=== PATIENT | male | born 1970 | race African-American/Black ===

== ENCOUNTER 2020-09-16 10:28 | Emergency (ER) | payer MEDICARE, MEDICAID ==
[~2020-09-16] VITALS: Ht 182.9 cm; Wt 87.0 kg
[~2020-09-16 10:28] MED LIST: BENA40TA9; CLON0.3T4; HYDR25TA PO; IMIT25; NAPR-1176; TRAM50TA94
[2020-09-16 10:32] VITALS: BP 174/103
[2020-09-16] MEDS ORDERED: BACITRACIN 15GM TUBE TOP ONE (11:00)
[2020-09-16] MEDS ORDERED: BACITRACIN ZINC OINT UDPKT TOP ONE (11:00)
== END 2020-09-16 11:55 | disposition home or self-care (01) ==
LOC: ER 10:28
DX: S60.221A Contusion of right hand, initial encounter (principal); W22.8XXA Striking against or struck by other objects, initial encounter; Y93.89 Activity, other specified; Y92.89 Other specified places as the place of occurrence of the external cause; I10 Essential (primary) hypertension; I25.10 Atherosclerotic heart disease of native coronary artery without angina pectoris
CPT/HCPCS: 73130; 99283

== ENCOUNTER 2022-08-23 22:08 | Inpatient (IN) | payer MEDICAID, MEDICARE ==
[~2022-08-23] VITALS: Ht 188 cm; Wt 81.3 kg
[~2022-08-23 22:08] MED LIST changes: -BENA40TA9; +BENA40TA91
[2022-08-24 00:51] LABS: CHLORIDE 105 mEq/L (98-107)
[2022-08-24 00:53] LABS: BASOPHILS % 0.6 % (0.0-2.0); EOSINOPHILS % 1.5 % (0.0-5.0); HEMATOCRIT. 42.5 % (42.0-52.0); HEMOGLOBIN. 13.8 g/dL (14.0-18.0); LYMPHOCYTES % 25.7 % (20.0-50.0); MEAN CORPUSCULAR HEMOGLOBIN 27.5 pg (28.0-32.0); MEAN CORPUSCULAR VOLUME 84.4 fL (80.0-94.0); MEAN PLATELET VOLUME 7.9 fl (7.4-10.4); MONOCYTES % 12.4 % (2.0-8.0); NEUTROPHILS % 59.8 % (40.0-76.0); PLATELET 363 x1000/uL (130-400); RED BLOOD CELL COUNT 5.04 mill/uL (4.7-6.1); RED CELL DISTRIBUTION WIDTH 14.1 % (11.6-14.6)
[2022-08-24] MEDS ORDERED: NITROGLYCERIN 0.4MG TABLET SL SL PRN (01:15)
[2022-08-24] MEDS ORDERED: ASPIRIN 81MG TABLET PO ONE (01:15)
[2022-08-24] MEDS ORDERED: CLONIDINE 0.2MG TABLET PO ONE (01:30)
[2022-08-24 10:13] VITALS: BP 178/98
[2022-08-24] MEDS ORDERED: BENAZEPRIL 10MG TABLET PO NR (10:15)
[2022-08-24] MEDS ORDERED: ACETAMINOPHEN 325MG TABLET PO PRN (10:15)
[2022-08-24] MEDS ORDERED: ONDANSETRON HCL 4MG/2ML INJ IV PRN (10:15)
[2022-08-24] MEDS ORDERED: CLONIDINE 0.1MG TABLET PO PRN (10:15)
[2022-08-24 12:00] VITALS: BP 160/103
[2022-08-24] MEDS ORDERED: REGADENOSON 0.4 MG/5 ML IV NR (15:15)
[2022-08-24 16:02] VITALS: BP 147/90
[2022-08-24] MEDS: FUROSEMIDE 40MG/4ML VIAL IVP SCH (17:35)
[2022-08-24 17:41] LABS: HEPATITIS B SURFACE ANTIGEN NEGATIVE
[2022-08-24 18:00] VITALS: BP 179/99
[2022-08-24 20:00] VITALS: BP 169/99
[2022-08-24] MEDS: AMLODIPINE 10MG TABLET PO SCH (21:49)
[2022-08-24] MEDS: LOSARTAN POTASSIUM 50 MG TABLET PO SCH (21:50)
[2022-08-25] VITALS (9 sets, daily range): BP systolic 138–160; BP diastolic 75–100
[2022-08-25] MEDS: FUROSEMIDE 40MG/4ML VIAL IVP SCH ×3 (05:33→17:43)
[2022-08-25 06:23] LABS: *AMPHETAMINES SCREEN URINE NEGATIVE (NEGATIVE); *BARBITURATES SCREEN URINE NEGATIVE (NEGATIVE); *BENZODIAZEPINES SCREEN URINE NEGATIVE (NEGATIVE); *COCAINE SCREEN URINE NEGATIVE (NEGATIVE); CANNABINOID URINE SCREEN PRESUMTIVE POSITIVE (NEGATIVE); METHADONE URINE SCREEN NEGATIVE (NEGATIVE); OPIATES URINE SCREEN NEGATIVE (NEGATIVE); PHENCYCLIDINE URINE SCREEN NEGATIVE (NEGATIVE)
[2022-08-25] MEDS: AMLODIPINE 10MG TABLET PO SCH (08:01)
[2022-08-25] MEDS: LOSARTAN POTASSIUM 50 MG TABLET PO SCH (08:01)
[2022-08-25] MEDS ORDERED: BENAZEPRIL 10MG TABLET PO SCH (09:00)
[2022-08-25] MEDS ORDERED: ASPIRIN 81MG TABLET PO SCH (09:00)
[2022-08-25] MEDS ORDERED: AMLODIPINE 10MG TABLET PO SCH (09:00)
[2022-08-25] MEDS ORDERED: REGADENOSON 0.4 MG/5 ML IV ONE (11:27)
== END 2022-08-25 18:59 | disposition home or self-care (01) | DRG 199 ==
LOC: ER 22:21 → MICUSO 08-24 01:25 → 3WST 08-24 09:47
PROVIDERS: ADMIT Internal Medicine; ATTEND Internal Medicine
DX: I16.0 Hypertensive urgency (principal); I50.43 Acute on chronic combined systolic (congestive) and diastolic (congestive) heart failure; R65.10 Systemic inflammatory response syndrome (SIRS) of non-infectious origin without acute organ dysfunction; I20.0 Unstable angina; I11.0 Hypertensive heart disease with heart failure; D64.9 Anemia, unspecified; F12.90 Cannabis use, unspecified, uncomplicated; G43.909 Migraine, unspecified, not intractable, without status migrainosus; Z79.899 Other long term (current) drug therapy; Z91.199 Patient's noncompliance with other medical treatment and regimen due to unspecified reason; I25.2 Old myocardial infarction; Z91.14 Patient's other noncompliance with medication regimen; Z79.82 Long term (current) use of aspirin; Z93.3 Colostomy status
CPT/HCPCS: 36415; 71045; 78452; 80053; 80305; 83880; 84484; 85025; 85379; 86803; 87340; 93005; 93017; 93306; 93970; 99285; A9500; J1940; J2785

== ENCOUNTER 2025-01-09 10:31 | Inpatient (IN) | payer MEDICAID ==
[~2025-01-09] VITALS: Ht 182.9 cm; Wt 82.6 kg
[~2025-01-09 10:31] MED LIST changes: +BENA40TA91 MT; +HYDR25TA MT
[2025-01-09] MEDS ORDERED: LOTEN PO ONE (11:15)
[2025-01-09 11:28] LABS: BASOPHILS % 0.5 % (0.0-2.0); EOSINOPHILS % 2.1 % (0.0-5.0); HEMATOCRIT. 46.1 % (42.0-52.0); HEMOGLOBIN. 15.3 g/dL (14.0-18.0); LYMPHOCYTES % 39.8 % (20.0-50.0); MEAN CORPUSCULAR HEMOGLOBIN 27.7 pg (28.0-32.0); MEAN CORPUSCULAR HGB CONC 33.1 g/dL (31.0-37.0); MEAN CORPUSCULAR VOLUME 83.6 fL (80.0-94.0); MEAN PLATELET VOLUME 7.9 fl (7.4-10.4); NEUTROPHILS % 48.6 % (40.0-76.0); PLATELET 289 x1000/uL (130-400); RED BLOOD CELL COUNT 5.52 mill/uL (4.7-6.1); RED CELL DISTRIBUTION WIDTH 14.7 % (11.6-14.6); WHITE BLOOD COUNT 10.2 x1000/uL (4.5-11.0)
[2025-01-09 11:29] LABS: CLARITY URINE CLEAR (CLEAR); COLOR URINE YELLOW (YELLOW); GLUCOSE URINE NEGATIVE (NEGATIVE); KETONES URINE TRACE (NEGATIVE); LEUKOCYTE ESTERASE URINE NEGATIVE (NEGATIVE); NITRITE URINE NEGATIVE (NEGATIVE); OCCULT BLOOD URINE TRACE (NEGATIVE); PH URINE 5.5 (4.5-8.0); PROTEIN URINE TRACE (NEGATIVE); SPECIFIC GRAVITY URINE 1.028 (1.005-1.030)
[2025-01-09 11:54] LABS: MUCUS URINE 2+ /lpf (NONE/TRACE); SQUAMOUS EPITHELIAL CELL URINE FEW /lpf (RARE/1+)
[2025-01-09 11:56] LABS: RBC URINE 0-2 /hpf (0-2); WBC URINE 0-2 /hpf (0-2)
[2025-01-09 11:58] LABS: CHLORIDE 105 mEq/L (98-107); POTASSIUM 4.5 mEq/L (3.5-5.1); SODIUM 137 mEq/L (136-145)
[2025-01-09 11:59] LABS: CARBON DIOXIDE 27 mEq/L (21-32)
[2025-01-09 12:02] LABS: BACTERIA URINE NONE SEEN
[2025-01-09 12:04] LABS: CREATININE 1.1 mg/dL (0.6-1.3); GLUCOSE 94 mg/dL (70-105); UREA NITROGEN BLOOD 19 mg/dL (9-23)
[2025-01-09 12:05] LABS: TROPONIN I HIGH SENSITIVITY 28 ng/L (3.0-53)
[2025-01-09] MEDS: IBUPROFEN 600MG TABLET PO ONE (12:42)
[2025-01-09] MEDS: LISINOPRIL 20MG TABLET PO SCH (12:42)
[2025-01-09] MEDS: HYDROCHLOROTHIAZIDE 25MG TABLET PO ONE (12:43)
[2025-01-09 14:28] LABS: TROPONIN I HIGH SENSITIVITY 29 ng/L (3.0-53)
[2025-01-09] MEDS: SUMATRIPTAN SUCCINATE 25MG TABLET PO ONE (15:29)
[2025-01-09 18:38] VITALS: BP 121/79; PULSE 65; RESP 20; TEMP 36.8
[2025-01-09] MEDS ORDERED: ACETAMINOPHEN 325MG TABLET PO PRN (18:45)
[2025-01-09] MEDS ORDERED: ONDANSETRON HCL 4MG/2ML INJ IV PRN (18:45)
[2025-01-09] MEDS ORDERED: DOCUSATE SODIUM 100MG CAPSULE PO PRN (18:45)
[2025-01-09] MEDS ORDERED: DEXTROSE 50% WATER 50ML SYRINGE IV PRN (18:45)
[2025-01-09] MEDS ORDERED: IPRATROPIUM/ALBUTEROL 0.5-3(2.5)MG/3ML NEB HHN PRN (18:45)
[2025-01-09] MEDS ORDERED: GUAIFENESIN 200MG/10ML SUGAR FREE UDC PO PRN (18:45)
[2025-01-09] MEDS ORDERED: MAGNESIUM/ALUMINUM HYDROXIDE/SIMETHICONE 30ML UDC PO PRN (18:45)
[2025-01-09 18:50] VITALS: BP 121/79; PULSE 65; RESP 20; TEMP 36.8
[2025-01-09 20:00] VITALS: BP 138/91; PULSE 68; RESP 20; TEMP 36.6; O2SAT 98
[2025-01-09] MEDS: MAGNESIUM 2 G PREMIX 50 ML IV SCH (20:33)
[2025-01-09] MEDS: ATORVASTATIN CALCIUM 40MG TABLET PO SCH (20:33)
[2025-01-09] MEDS: HYDROCHLOROTHIAZIDE 25MG TABLET PO SCH (20:33)
[2025-01-09] MEDS: FAMOTIDINE 20MG TABLET PO SCH (20:33)
[2025-01-09 21:12] LABS: HEPATITIS B SURFACE ANTIGEN NEGATIVE (Negative)
[2025-01-09 21:33] LABS: HEPATITIS C AB NON REACTIVE (Neg) (Negative)
[2025-01-09 23:59] LABS: TROPONIN I HIGH SENSITIVITY 30 ng/L (3.0-53)
[2025-01-10] VITALS: BP 116/71; PULSE 67; RESP 20; TEMP 36.5; O2SAT 98
[2025-01-10] LABS: CREATINE KINASE 140 IU/L (46-171)
[2025-01-10 04:00] VITALS: BP 133/82; PULSE 66; RESP 20; TEMP 36.9; O2SAT 97
[2025-01-10 08:00] VITALS: BP 147/93; PULSE 76; RESP 18; TEMP 36.4; O2SAT 98
[2025-01-10 08:39] LABS: *AMPHETAMINES SCREEN URINE NEGATIVE (NEGATIVE)
[2025-01-10 08:40] LABS: *BARBITURATES SCREEN URINE NEGATIVE (NEGATIVE); *BENZODIAZEPINES SCREEN URINE NEGATIVE (NEGATIVE); *COCAINE SCREEN URINE NEGATIVE (NEGATIVE); CANNABINOID URINE SCREEN PRESUMPTIVE POSITIVE (NEGATIVE); ECSTASY MDMA SCREEN URINE NEGATIVE (NEGATIVE); METHADONE URINE SCREEN NEGATIVE (NEGATIVE); OPIATES URINE SCREEN NEGATIVE (NEGATIVE); PHENCYCLIDINE URINE SCREEN NEGATIVE (NEGATIVE)
[2025-01-10] MEDS: LISINOPRIL 40MG TABLET PO SCH (09:27)
[2025-01-10] MEDS: ACETAMINOPHEN 325MG TABLET PO PRN (09:31)
[2025-01-10 09:47] LABS: BASOPHILS % 0.3 % (0.0-2.0); EOSINOPHILS % 2.3 % (0.0-5.0); HEMATOCRIT. 49.4 % (42.0-52.0); HEMOGLOBIN. 16.3 g/dL (14.0-18.0); LYMPHOCYTES % 35.9 % (20.0-50.0); MEAN CORPUSCULAR HEMOGLOBIN 27.3 pg (28.0-32.0); MEAN CORPUSCULAR HGB CONC 32.9 g/dL (31.0-37.0); MEAN CORPUSCULAR VOLUME 82.9 fL (80.0-94.0); MEAN PLATELET VOLUME 8.4 fl (7.4-10.4); MONOCYTES % 8.6 % (2.0-8.0); NEUTROPHILS % 52.9 % (40.0-76.0); PLATELET 309 x1000/uL (130-400); RED BLOOD CELL COUNT 5.96 mill/uL (4.7-6.1); RED CELL DISTRIBUTION WIDTH 14.9 % (11.6-14.6)
[2025-01-10 09:52] LABS: CHLORIDE 101 mEq/L (98-107); POTASSIUM 3.8 mEq/L (3.5-5.1); SODIUM 138 mEq/L (136-145)
[2025-01-10 09:54] LABS: CARBON DIOXIDE 29 mEq/L (21-32)
[2025-01-10 09:55] LABS: CALCIUM 9.7 mg/dL (8.7-10.4)
[2025-01-10 09:57] LABS: TROPONIN I HIGH SENSITIVITY 33 ng/L (3.0-53)
[2025-01-10 09:59] LABS: T4 FREE 1.55 ng/dL (0.89-1.76); THYROID STIMULATING HORMONE 1.38 uIU/mL (0.55-4.78)
[2025-01-10 10:00] LABS: CREATININE 1.2 mg/dL (0.6-1.3); GLUCOSE 93 mg/dL (70-105); TRIGLYCERIDE 138 mg/dL (0-150); UREA NITROGEN BLOOD 11 mg/dL (9-23)
[2025-01-10 10:01] LABS: LDL CHOLESTEROL 149 mg/dL (5-100)
[2025-01-10 10:02] LABS: CHOLESTEROL 212 mg/dL (<200); HDL CHOLESTEROL 50 mg/dL (>55)
[2025-01-10 10:05] LABS: CREATINE KINASE 161 IU/L (46-171)
[2025-01-10 12:00] VITALS: BP 146/86; PULSE 70; RESP 18; TEMP 36.6; O2SAT 98
[2025-01-10 13:24] VITALS: RESP 18
[2025-01-10] MEDS: KETOROLAC 30MG/ML VIAL IV NR (13:24)
[2025-01-10 14:06] VITALS: BP 142/74; PULSE 75; TEMP 97.6; O2SAT 100
[2025-01-10] MEDS ORDERED: HYDR25TA PO (15:18)
[2025-01-10] MEDS ORDERED: LIP40 PO (15:18)
[2025-01-10] MEDS ORDERED: BENA40TA91 PO (15:18)
[2025-01-10] MEDS ORDERED: NAPR-1176 PO (15:18)
[2025-01-10] MEDS: CLONIDINE 0.1MG TABLET PO PRN (15:47)
== END 2025-01-10 17:30 | disposition home or self-care (01) | DRG 199 ==
LOC: ER 10:31 → EDBEDREQ 11:23 → ENRESERV 16:30 → 7WST 18:38
PROVIDERS: ADMIT Internal Medicine; ATTEND Internal Medicine
DX: I16.1 Hypertensive emergency (principal); I24.9 Acute ischemic heart disease, unspecified; E78.5 Hyperlipidemia, unspecified; G43.909 Migraine, unspecified, not intractable, without status migrainosus; I10 Essential (primary) hypertension; E83.42 Hypomagnesemia; Z79.899 Other long term (current) drug therapy; Z93.3 Colostomy status; I25.2 Old myocardial infarction
CPT/HCPCS: 36415; 71045; 80048; 80061; 80305; 81003; 82550; 83036; 83735; 84439; 84443; 84484; 85025; 86705; 87340; 93005; 99285; A4606; J1885; J3475